=== PATIENT | male | born 2005 | race Caucasian/White ===

== ENCOUNTER 2023-03-16 14:35 | Emergency (ER) | payer BC, MEDICAID ==
[~2023-03-16] VITALS: Ht 175.3 cm; Wt 86.2 kg
[2023-03-16 14:44] VITALS: BP 167/82
--- NOTE | 2023-03-16 15:06 | ER.PDOC ---
General Chief Complaint: Abdomen Pain Stated Complaint: ABD PAIN Time seen by MD: 14:50 Source: patient, family Exam Limitations: no limitations History of Present Illness Initial Comments 17-year-old male that presents to the emergency room with a 2-month history of intermittent left lower quadrant abdominal pain. Patient says she gets about 3 attacks a week. The last a few minutes. He was seen by primary care physician in the past and was given something to help with abdominal cramps which used to help him. Patient had 1 episode of vomiting yesterday and one episode of vomiting today he also has 1 episode of diarrhea yesterday and one episode of diarrhea today. He is able to tolerate oral intake well. He denies hematemesis hematochezia or melena. Patient denies any kind of body aches, fevers, chills, URI symptoms Severity/Quality: mild (3/10) Radiation: no radiation Associated Symptoms: diarrhea, nausea/vomiting Allergies: Coded Allergies: No Known Allergies (Unverified , 06/13/14) Vital Signs First Vital Signs Date Time Temp Pulse Resp B/P (MAP) Pulse Ox O2 Delivery O2 Flow Rate FiO2 03/16/23 14:44 98.2 80 18 97 03/16/23 14:44 167/82 (110) Room Air* 0 21 Last Vital Signs Date Time Temp Pulse Resp B/P (MAP) Pulse Ox O2 Delivery O2 Flow Rate FiO2 03/16/23 14:44 98.2 80 18 03/16/23 14:44 167/82 (110) 97 Room Air* 0 21 Past Medical History Medical History: no pertinent history, asthma, GERD Surgical History: no surgical history Social History Alcohol Use: none Drug Use: none Constitutional: denies no symptoms reported, denies see HPI, denies chills, denies diaphoresis, denies fever, denies malaise, denies weakness, denies other EENTM: denies no symptoms reported, denies see HPI, denies eye pain, denies blurred vision, denies tearing, denies double vision, denies ear pain, denies ear discharge, denies nose pain, denies nose congestion, denies throat pain, denies throat swelling, denies mouth pain, denies mouth swelling, denies other Gastrointestinal: see HPI All Other Systems: Reviewed and Negative Physical Exam General Appearance: No Apparent Distress, WD/WN HEENT: PERRL/EOMI, Normal ENT Inspection, Pharynx Normal Neck: Non-Tender, Full Range of Motion, Supple, Normal Inspection Respiratory: chest non-tender, lungs clear, normal breath sounds, no respiratory distress, no accessory muscle use Cardiovascular: Normal Peripheral Pulses, Regular Rate, Rhythm, No Edema, No Gallop, No JVD, No Murmur Gastrointestinal: Normal Bowel Sounds, Non Tender, Soft Pelvic: Normal External Exam, Normal Adnexa, No Cerv. 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 NML as Tested, No Motor/Sensory Deficits, Alert, Normal Mood/Affect, Oriented x 3 Skin: Normal Color, Warm/Dry Lymphatic: No Adenopathy Results/Orders Results/Orders Vital Signs Date Time Temp Pulse Resp B/P (MAP) Pulse Ox O2 Delivery O2 Flow Rate FiO2 03/16/23 14:44 98.2 80 18 03/16/23 14:44 98.2 80 18 167/82 (110) 97 Room Air* 0 21 03/16/23 14:44 98.2 80 18 97 ER DEPART Departure Time of Disposition: 15:04 Disposition: 01 HOME / SELF CARE / HOMELESS Impression: Primary Impression: LLQ abdominal pain Condition: Stable Patient Instructions: Abdominal Pain Referrals: PCP,UNKNOWN (PCP) PRIMARY CARE PROVIDER Additional Instructions: mary hess f/felix maloney pcp in 3d rter prn Duration or Time Spent with Pa: 20 SAUL DUBOSE MD Mar 16, 2023 15:05
== END 2023-03-16 15:24 | disposition home or self-care (01) ==
LOC: ER 14:35
DX: R10.32 Left lower quadrant pain (principal); J45.909 Unspecified asthma, uncomplicated; K21.9 Gastro-esophageal reflux disease without esophagitis
CPT/HCPCS: 99283